=== PATIENT | male | born 1945 | race Caucasian/White ===

== ENCOUNTER 2016-04-26 12:47 | Outpatient (CLI) ==
[2014-04-20 11:30] VITALS: BMI 25.1
[2016-04-26 13:09] LABS: BASOPHILS # (AUTO) 0.1 K/uL (0-0.2); BASOPHILS % (AUTO) 1.6 % (0.0-3.0); EOSINOPHILS # (AUTO) 0.1 K/ul (0.0-0.7); EOSINOPHILS % (AUTO) 1.8 % (0.0-7.0); HEMATOCRIT 38.1 % (42.0-52.0); IMMATURE GRANULOCYTE % (AUTO) 0.2 % (0.0-5.0); LYMPHOCYTES # (AUTO) 1.8 K/uL (0.60-3.4); MEAN CORPUSCULAR HEMOGLOBIN 31.6 pg (27.0-31.0); MEAN CORPUSCULAR HGB CONC 34.1 (31.8-35.4); MEAN CORPUSCULAR VOLUME 92.5 fl (80.0-94.0); MONOCYTES # (AUTO) 0.6 K/uL (0.4-2.0); MONOCYTES % (AUTO) 12.9 (0-10); NEUTROPHILS # (AUTO) 2.4 K/ul (2.0-6.9); NEUTROPHILS % (AUTO) 47.5; PLATELET COUNT 243 10^3/uL (140-440); RED BLOOD COUNT 4.12 10^6/ul (4.70-6.10); WHITE BLOOD COUNT 4.97 K/ul (4.2-10.2)
[2016-04-26 14:17] LABS: ALANINE AMINOTRANSFERASE 32 U/L (12-78); ALBUMIN/GLOBULIN RATIO 1.25; ALKALINE PHOSPHATASE 78 U/L (56-119); ASPARTATE AMINO TRANSFERASE 31 U/L (15-37); BILIRUBIN,TOTAL 0.39 mg/dL (0.00-1.20); BLOOD UREA NITROGEN 12 mg/dL (7-18); CALCIUM 10.3 mg/dL (8.2-10.2); CARBON DIOXIDE 28 mmol/L (23-31); CHLORIDE 99 mmol/L (98-107); FOLATE > 20.0 ng/mL (3.1-20.5); GLUCOSE 92 mg/dL (82-115); SODIUM 133 mmol/L (136-145); TOTAL PROTEIN 7.2 g/dL (5.8-8.1)
== END 2016-04-26 12:48 | disposition home or self-care (01) ==
LOC: LAB 12:47
PROVIDERS: ATTEND Internal Medicine
DX: E83.52 Hypercalcemia (principal); E78.5 Hyperlipidemia, unspecified; D64.9 Anemia, unspecified; R73.9 Hyperglycemia, unspecified; N40.0 Benign prostatic hyperplasia without lower urinary tract symptoms
CPT/HCPCS: 36415; 80053; 82607; 82746; 83970; 85025

== ENCOUNTER 2018-06-23 06:32 | Outpatient (CLI) | payer OTHER ==
[2014-04-20 11:30] VITALS: BMI 25.1
--- NOTE | 2018-06-23 12:23 | ECHO2D ---
Date of Exam: 06/23/18 Ordering Physician: DR. JADE LIU Room #: OP Reason for Echo: DILATED CARDIOMYOPATHY, CAD, SOB, PVC'S M-Mode Normal Adult Results LV Dimensions Normal Adult Results AoV Opening excursions >1.6 >1.6 LVEDD-base- 3.5-5.8 7.2 Ao root dimensions 2.0-3.7 4.1 LVESD-base- 3.1-4.6 L. Atrium dimensions 1.9-3.8 5.2 Post. Wall thickness 0.8-1.1 1.3 IV septum (thickness) 0.7-1.2 1.3 Post. Wall excursion 0.72-1.3 0.5 Septal motion 0.5 Systolic motion R. Ventricular cavity 1.5-2.0 3.0 LVEF 60% 30 TO 35% Paradoxical septal wall motion NORMAL 2-D : DILATED LEFT ATRIAL AND LEFT VENTRICLE CAVITIES--NORMAL VALVES--NO EFFUSION, NO THROMBUS, HYPOKINETIC LEFT VENTRICLE M-MODE: MV: NORMAL AV: NORMAL TV: NORMAL PV: CHAMBER SIZE: DILATED LEFT ATRIAL, LEFT VENTRICLE AND RIGHT VENTRICLE CAVITIES WALL MOTION: HYPOKINETIC LEFT VENTRICLE PERICARDIUM: NORMAL INTERPRETATION: 1. LEFT VENTRICULAR HYPERTROPHY 2. DILATED/ ENLARGED LEFT ATRIAL AND LEFT VENTRICLE CAVITIES 3. DILATED AORTIC ROOT 4. HYPOKINETIC LEFT VENTRICLE WITH EJECTION FRACTION 30 TO 35% 5. (HYPERTROPHIC) DILATED CARDIOMYOPATHY WITH LOW EJECTION FRACTION MTDD
--- NOTE | 2018-06-27 09:54 | HOLTER ---
PATIENT INFORMATION AND COMMENTS Attending Physician: DR. JADE LIU Indications: CAD, PVC'S, DILATED CARDIOMYOPATHY __ Patient Medications: NO MEDICATION LIST __ Pre-procedure Summary: Protocol: Standard Heart Rate Started: 06/23/18756 Minimum: 38 BPM Weight: 197 LBS Ended: 06/24/18756 Maximum: 103 BPM Height: 71" Duration: 24 HOURS Average: 55 BPM _ INTERPRETATIONS/OBSERVATIONS: 1. BASIC RHYTHM: SINUS, RATE 38 BPM TO 105 BPM 2. PVC'S --4% OF BEATS SCANNED--FEW COUPLETS 3. INFREQUENT PAC'S 4. FEW SHORT RUNS OF SVT RATE 100 BPM, 4 TO 6 BEATS 5. NO PAUSES GREATER THAN 2 SECONDS MTDD
== END 2018-06-23 06:33 | disposition home or self-care (01) ==
LOC: CAR 06:32
PROVIDERS: ATTEND Internal Medicine
DX: R06.02 Shortness of breath (principal); I49.3 Ventricular premature depolarization; I42.0 Dilated cardiomyopathy; I25.10 Atherosclerotic heart disease of native coronary artery without angina pectoris
CPT/HCPCS: 93005; 93010; 93227